=== PATIENT | male | born 1945 | race African-American/Black ===

== ENCOUNTER 2020-05-06 12:20 | Emergency (ER) | payer OTHER ==
[~2020-05-06] VITALS: Ht 185.4 cm; Wt 123.0 kg
[2020-05-06 14:40] VITALS: BP 149/87
== END 2020-05-06 15:00 | disposition home or self-care (01) ==
LOC: ER 12:20
DX: R60.0 Localized edema (principal); I10 Essential (primary) hypertension
CPT/HCPCS: 93005; 93971; 99284